=== PATIENT | male | born 1950 | race Caucasian/White ===

== ENCOUNTER 2019-05-25 15:27 | Emergency (ER) | payer MEDICARE, OTHER ==
[2019-05-25] MEDS ORDERED: NS 0.9% 1000 ML** 1,000 ML IV ONE (17:11)
--- NOTE | 2019-05-25 17:11 | ED ---
Abdominal Pain/Male - HPI Summary HPI Summary: 68 year old M presenting to [facility] accompanied by two female companions complains of RLQ pain that radiates to the back following meals and smoking for around a month. The pain subsides after episodes but comes back after eating again. The episode this morning was particularly bad hence the ED visit. Patient reports fever and dizziness. Patient denies n/v/d, constipation, diarrhea, and any urinary symptoms. PMHx of HTN and diabetes. SOcHx of cigarettes use and no alcohol or drugs. The patient rates the pain 6/10 in severity. Symptoms aggravated by eating. Symptoms alleviated by nothing. Medications reviewed. Allergies noted. - History of Current Complaint Chief Complaint: EDAbdPain Stated Complaint: FEVER/ABD PAIN PER PT Time Seen by Provider: 05/25/19 17:02 Hx Obtained From: Patient Onset/Duration: Gradual Onset, Lasting Weeks - Since a month ago, Still Present , Worse Since Timing: Intermittent - Comes after eating Severity Initially: Moderate Severity Currently: Moderate Pain Intensity: 6 Pain Scale Used: 0-10 Numeric Location: Discrete At: RLQ Radiates: No Aggravating Factor(s): Food Alleviating Factor(s): Nothing Associated Signs And Symptoms: Positive: Fever, Dizzy. Negative: Constipation, Urinary Symptoms, Nausea, Vomiting, Diarrhea - Allergies/Home Medications Allergies/Adverse Reactions: Allergies Allergy/AdvReac Type Severity Reaction Status Date / Time clopidogrel [From Plavix] Allergy Rash Verified 05/25/19 15:53 Home Medications: Home Medications Lisinopril TAB* [Prinivil TAB*] 10 mg PO QAM 07/19/13 [History Confirmed ] Dicyclomine CAP* [Bentyl CAP*] 10 mg PO TID PRN #12 cap 05/25/19 [Rx] Lovastatin (NF) [Mevacor (NF)] 40 mg PO QPM 05/25/19 [History Confirmed 05/25/19 ] Metoprolol Tartrate TAB* [Lopressor TAB*] 25 mg PO BID 05/25/19 [History Confirmed 05/25/19] SitaGLIPtin (NF) [Januvia (NF)] 100 mg PO DAILY 05/25/19 [History Confirmed ] glipiZIDE TAB.XL* [Glucotrol XL*] 5 mg PO QAM 05/25/19 [History Confirmed ] metFORMIN* [Glucophage 1000 MG TAB *] 1,000 mg PO BID 05/25/19 [History Confirmed 05/25/19] PMH/Surg Hx/FS Hx/Imm Hx Endocrine/Hematology History: Reports: Hx Diabetes - TYPE 2 Cardiovascular History: Reports: Hx Coronary Artery Disease - CHOLESTEROL CONTROL WITH MEDICATIONS, Other Cardiovascular Problems/Disorders - STENTS X 2, 2004 AND 2008 Musculoskeletal History: Reports: Other Musculoskeletal History - OCCASIONAL ACHES Sensory History: Reports: Hx Contacts or Glasses - READING GLASSES Denies: Hx Hearing Aid Opthamlomology History: Reports: Hx Contacts or Glasses - READING GLASSES - Surgical History Surgery Procedure, Year, and Place: 2004 & 2008 CARDIAC STENTS INSERTION X 2, [place]. 2003 BILATERAL CATARACT EXTRACTION WITH IOL IMPLANT, [facility]. 2014 COLONOSCOPY, [facility] Hx Anesthesia Reactions: No Infectious Disease History: No Infectious Disease History: Denies: Traveled Outside the [place] in Last 30 Days - Family History Known Family History: Positive: Diabetes, Other - Arthritis, breast CA - Social History Alcohol Use: None Substance Use Type: Reports: None Amount Used/How Often: 1 PPD Length of Time of Smoking/Using Tobacco: 40 YEARS Review of Systems Positive: Fever Gastrointestinal: Negative - Constipation Positive: Abdominal Pain - RLQ. Negative: Vomiting, Diarrhea, Nausea Genitourinary: Negative - Urinary symptoms Neurological/Mental Status: Other - Dizziness All Other Systems Reviewed And Are Negative: Yes Physical Exam - Summary Physical Exam Summary: Constitutional: Well-developed, Well-nourished, Alert. (-) Distressed Skin: Warm, Dry HENT: Normocephalic; Atraumatic Eyes: Conjunctiva normal Neck: Musculoskeletal ROM normal neck. (-) JVD, (-) Stridor, (-) Tracheal deviation Cardio: Rhythm regular, rate normal, Heart sounds normal; Intact distal pulses; Radial pulses are 2+ and symmetric. (-) Murmur Pulmonary/Chest wall: Effort normal. (-) Respiratory distress, (-) Wheezes, (-) Rales Abd: Severe tenderness in RLQ, no rebound or guarding, mild RUQ tenderness Musculoskeletal: (-) Edema Lymph: (-) Cervical adenopathy Neuro: Alert, Oriented x3 Psych: Mood and affect Normal Vital Signs On Initial Exam: Initial Vitals Temp Pulse Resp BP Pulse Ox 98.6 F 68 16 131/80 95 05/25/19 15:50 05/25/19 15:50 05/25/19 15:50 05/25/19 15:50 05/25/19 15:50 Procedures - Sedation Patient Received Moderate/Deep Sedation with Procedure: No Diagnostics - Vital Signs Vital Signs Temp Pulse Resp BP Pulse Ox 05/25/19 15:50 98.6 F 68 16 131/80 95 - Laboratory Result Diagrams: 05/25/19 17:22 05/25/19 17:22 Lab Statement: Any lab studies that have been ordered have been reviewed, and results considered in the medical decision making process. - CT A/P CT Interpretation Completed By: Radiologist Summary of CT Findings: Abnormal right kidney with wedge-shaped hypodense regions compatible with pyelonephritis. No obvious mass lesion, although follow- up is recommended. Dr. Haddad has reviewed this radiology report. Re-Evaluation - Re-Evaluation First Eval Re-Evaluation Time: 19:28 Comment: Discussed results with patient. Patient will be discharged home with dx of RLQ pain. Patient understands and agrees with this plan. Abdominal Pain Male Course/Dx - Course Course Of Treatment: Patient is here with a couple episodes of right lower quadrant pain that occur after eating. Patient is overall well-appearing but does have point tenderness in his right lower quadrant. Patient had blood work performed which was grossly unremarkable including a normal CRP. Patient a CT scan which showed stranding around the right kidney but patient had no urinary symptoms and had a negative UA. She was not treated with antibiotics. Patient was started on Bentyl and was told to follow up with his primary care doctor to have his symptoms reevaluated. - Diagnoses Provider Diagnoses: RLQ abdominal pain Discharge ED - Sign-Out/Discharge Documenting (check all that apply): Patient Departure - Discharge - Discharge Plan Condition: Stable Disposition: HOME Prescriptions: Dicyclomine CAP* [Bentyl CAP*] 10 mg PO TID PRN #12 cap PRN Reason: abdominal pain Patient Education Materials: Acute Abdominal Pain (ED) Referrals: Anthony Cueto MD [Primary Care Provider] - Additional Instructions: Please follow up with her primary care doctor to get reevaluated Please return to the emergency department history of severe pain, fever, intractable vomiting, any other concerning symptoms Please take your medication as prescribed - Billing Disposition and Condition Condition: STABLE Disposition: Home - Attestation Statements Document Initiated by Scribe: Yes Documenting Scribe: Donald Jang Provider For Whom Naima is Documenting (Include Credential): Odilon Haddad MD Scribe Attestation: I, Donald Jang, scribed for Odilon Haddad MD on 05/25/19 at 1945. Scribe Documentation Reviewed: Yes Provider Attestation: The documentation as recorded by the scribe, Donald Jang accurately reflects the service I personally performed and the decisions made by me, Odilon Haddad MD Status of Scribe Document: Viewed
[2019-05-25 17:38] LABS: ABS Eosinophils 0.2 10^3/ul (0-0.6); ABS Lymphocytes 3.3 10^3/ul (1.0-4.8); ABS Monocytes 0.7 10^3/ul (0-0.8); ABS Neutrophils 3.3 10^3/ul (1.5-7.7); Eosinophil % 2.1 %; Hematocrit 41 % (42-52); Hemoglobin 14.2 g/dL (14.0-18.0); Lymphocyte % 43.3 %; Mean Corpuscular HGB Conc 34 g/dL (31-36); Mean Corpuscular Hemoglobin 30 pg (27-31); Mean Corpuscular Volume 87 fL (80-94); Mean Platelet Volume 8.4 fL (7.4-10.4); Nucleated Red Blood Cells % 0.1; Platelet Count 211 10^3/uL (150-450); Red Blood Count 4.72 10^6 /uL (4.18-5.48); Red Cell Distribution Width 14 % (10-15); White Blood Count 7.5 10^3/uL (3.5-10.8)
[2019-05-25 17:54] LABS: Albumin 4.1 g/dL (3.2-5.2); Albumin/Globulin Ratio 1.2 (1-3); BUN/Creatinine Ratio 14.9 (8-20); C Reactive Protein 6.76 mg/L (<8.01); Calcium 9.4 mg/dL (8.6-10.3); EGFR Non-African American 79.3 (>60); Globulin 3.3 g/dL (2-4); Potassium 4.3 mmol/L (3.5-5.0); Total Bilirubin 0.5 mg/dL (0.2-1.0); Total Protein 7.4 g/dL (6.4-8.9)
[2019-05-25 18:22] LABS: Urine Appearance Clear; Urine Bilirubin Negative (Negative); Urine Blood Negative (Negative); Urine Color Yellow; Urine Glucose 2+(150 mg/dL) (Negative); Urine Ketones Negative (Negative); Urine Nitrite Negative (Negative); Urine Protein 2+(100 mg/dL) (Negative); Urine Specific Gravity 1.017 (1.010-1.030); Urine Urobilinogen Negative (Negative)
[2019-05-25] MEDS ORDERED: Iodixanol* (CONTRAST) 320 MG/ML 100 ML SDV IV ONE (18:39)
[2019-05-25 18:41] LABS: Urine Bacteria Absent (Absent); Urine Red Blood Cell Absent (Absent); Urine White Blood Cell Absent (Absent)
[2019-05-25 19:52] VITALS: BP 141/93
== END 2019-05-25 19:51 | disposition home or self-care (01) ==
LOC: ED 15:27
DX: R10.31 Right lower quadrant pain (principal); R50.9 Fever, unspecified; R42 Dizziness and giddiness; E11.9 Type 2 diabetes mellitus without complications; Z79.84 Long term (current) use of oral hypoglycemic drugs; E78.00 Pure hypercholesterolemia, unspecified; Z95.5 Presence of coronary angioplasty implant and graft; Z88.8 Allergy status to other drugs, medicaments and biological substances
CPT/HCPCS: 36415; 74177; 80053; 81003; 81015; 85025; 86140; 96360; 99283; Q9967

== ENCOUNTER 2019-05-31 18:33 | Emergency (ER) | payer MEDICARE ==
[2019-05-31] MEDS ORDERED: Morphine 4 MG/ML VIAL (1 ml) 4 MG/ML VIAL IV ONE (18:49)
[2019-05-31] MEDS ORDERED: NS 0.9% 1000 ML** 1,000 ML IV ONE ×2 (18:49→21:25)
[2019-05-31 19:09] LABS: ABS Basophils 0.1 10^3/ul (0-0.2); ABS Eosinophils 0.1 10^3/ul (0-0.6); ABS Lymphocytes 2.8 10^3/ul (1.0-4.8); ABS Monocytes 0.9 10^3/ul (0-0.8); ABS Neutrophils 7.2 10^3/ul (1.5-7.7); Eosinophil % 0.5 %; Hematocrit 43 % (42-52); Lymphocyte % 25.5 %; Mean Corpuscular HGB Conc 35 g/dL (31-36); Mean Corpuscular Hemoglobin 30 pg (27-31); Mean Corpuscular Volume 87 fL (80-94); Mean Platelet Volume 8.2 fL (7.4-10.4); Nucleated Red Blood Cells % 0.1; Platelet Count 225 10^3/uL (150-450); Red Blood Count 4.97 10^6 /uL (4.18-5.48); Red Cell Distribution Width 14 % (10-15); White Blood Count 11.1 10^3/uL (3.5-10.8)
--- NOTE | 2019-05-31 19:14 | ED ---
GI/ HPI - HPI Summary HPI Summary: 68 year old male presents with increasing right-sided abdominal pain that radiates to back for the past day. He had this pain intermittently for the past month and has gotten worse in the past day. He was seen here couple days ago and then CT showed some straining around the kidney. He denies any diarrhea or constipation. had normal BM today which helped with pain. No chest pain or shortness of breath. No nausea or vomiting. No fevers or chills. Does have a history of 2 previous stents and htn. No previous abd surgeries. Has never had this pain before. is concerned has diverticulitis. - History of Current Complaint Chief Complaint: EDAbdPain Time Seen by Provider: 05/31/19 18:41 Stated Complaint: SIDE PAIN PER PT Pain Intensity: 10 - Allergy/Home Medications Allergies/Adverse Reactions: Allergies Allergy/AdvReac Type Severity Reaction Status Date / Time clopidogrel [From Plavix] Allergy Rash Verified 05/25/19 15:53 Home Medications: Home Medications Lisinopril TAB* [Prinivil TAB*] 10 mg PO QAM 07/19/13 [History Confirmed ] Lovastatin (NF) [Mevacor (NF)] 40 mg PO QPM 05/25/19 [History Confirmed 05/31/19 ] Metoprolol Tartrate TAB* [Lopressor TAB*] 25 mg PO BID 05/25/19 [History Confirmed 05/31/19] SitaGLIPtin (NF) [Januvia (NF)] 100 mg PO DAILY 05/25/19 [History Confirmed 06/16] glipiZIDE TAB.XL* [Glucotrol XL*] 5 mg PO QAM 05/25/19 [History Confirmed ] metFORMIN* [Glucophage 1000 MG TAB *] 1,000 mg PO BID 05/25/19 [History Confirmed 05/31/19] oxyCODONE/Acetamin 5/325 MG* [Percocet 5/325 TAB*] 1 tab PO Q6H PRN #16 tab MDD 4 05/31/19 [Rx] PMH/Surg Hx/FS Hx/Imm Hx Endocrine/Hematology History: Reports: Hx Diabetes - TYPE 2 Cardiovascular History: Reports: Hx Coronary Artery Disease - CHOLESTEROL CONTROL WITH MEDICATIONS, Other Cardiovascular Problems/Disorders - STENTS X 2, 2004 AND 2008 Musculoskeletal History: Reports: Other Musculoskeletal History - OCCASIONAL ACHES Sensory History: Reports: Hx Contacts or Glasses - READING GLASSES Denies: Hx Hearing Aid Opthamlomology History: Reports: Hx Contacts or Glasses - READING GLASSES - Surgical History Surgery Procedure, Year, and Place: 2004 & 2008 CARDIAC STENTS INSERTION X 2, [place]. 2004 BILATERAL CATARACT EXTRACTION WITH IOL IMPLANT, [facility]. 2014 COLONOSCOPY, [facility] Hx Anesthesia Reactions: No Infectious Disease History: No Infectious Disease History: Denies: Traveled Outside the [place] in Last 30 Days - Family History Known Family History: Positive: Diabetes, Other - Arthritis, breast CA - Social History Alcohol Use: None Substance Use Type: Reports: None Smoking Status (MU): Heavy Every Day Tobacco Smoker Amount Used/How Often: 1 PPD Length of Time of Smoking/Using Tobacco: 40 YEARS Review of Systems Negative: Fever Negative: Chest Pain Negative: Shortness Of Breath Positive: Abdominal Pain, Nausea. Negative: Vomiting, Diarrhea All Other Systems Reviewed And Are Negative: Yes Physical Exam Triage Information Reviewed: Yes Vital Signs On Initial Exam: Initial Vitals Temp Pulse Resp BP Pulse Ox 97.0 F 121 18 118/88 97 05/31/19 18:34 05/31/19 18:34 05/31/19 18:34 05/31/19 18:34 05/31/19 18:34 Vital Signs Reviewed: Yes Appearance: Positive: Well-Appearing Skin: Positive: Warm, Dry Head/Face: Positive: Normal Head/Face Inspection Eyes: Positive: Normal, Conjunctiva Clear ENT: Positive: Pharynx normal Respiratory/Lung Sounds: Positive: Clear to Auscultation, Breath Sounds Present Cardiovascular: Positive: Normal, RRR Abdomen Description: Positive: Soft, Other: - tenderness in RLQ Bowel Sounds: Positive: Present Musculoskeletal: Positive: Normal Neurological: Positive: Normal Psychiatric: Positive: Normal Procedures - Sedation Patient Received Moderate/Deep Sedation with Procedure: No Diagnostics - Vital Signs Vital Signs Temp Pulse Resp BP Pulse Ox 05/31/19 19:03 18 05/31/19 18:34 97.0 F 121 18 118/88 97 - Laboratory Lab Results: Lab Results 05/31/19 Range/Units 19:00 WBC 11.1 H (3.5-10.8) 10^3/uL RBC 4.97 (4.18-5.48) 10^6 /uL Hgb 15.0 (14.0-18.0) g/dL Hct 43 (42-52) % MCV 87 (80-94) fL MCH 30 (27-31) pg MCHC 35 (31-36) g/dL RDW 14 (10-15) % Plt Count 225 (150-450) 10^3/uL MPV 8.2 (7.4-10.4) fL Neut % (Auto) 65.2 % Lymph % (Auto) 25.5 % Chambers % (Auto) 8.3 % Eos % (Auto) 0.5 % Baso % (Auto) 0.5 % Absolute Neuts (auto) 7.2 (1.5-7.7) 10^3/ul Absolute Lymphs (auto) 2.8 (1.0-4.8) 10^3/ul Absolute Monos (auto) 0.9 H (0-0.8) 10^3/ul Absolute Eos (auto) 0.1 (0-0.6) 10^3/ul Absolute Basos (auto) 0.1 (0-0.2) 10^3/ul Absolute Nucleated RBC 0.0 10^3/ul Nucleated RBC % 0.1 Result Diagrams: 05/31/19 19:00 05/31/19 19:00 Lab Statement: Any lab studies that have been ordered have been reviewed, and results considered in the medical decision making process. - CT abd CT Interpretation Completed By: Radiologist Summary of CT Findings: IMPRESSION: 1. Intervally enlarged right renal infarct. 2. Fusiform infrarenal aorta aneurysm. No rupture. - EKG No standard instances Cardiac Rate: Tachycardia EKG Rhythm: Sinus Tachycardia Summary of EKG Findings: sinus tachycardia, RBBB GIGU Course/Dx - Course Course Of Treatment: 68 year old male presents with increasing right-sided abdominal pain that radiates to back for the past day. He had this pain intermittently for the past month and has gotten worse in the past day. He was seen here couple days ago and then CT showed some straining around the kidney. He denies any diarrhea or constipation. had normal BM today which helped with pain. No chest pain or shortness of breath. No fevers or chills. Does have a history of 2 previous stents and htn. No previous abd surgeries. Has never had this pain before. On exam tenderness in the right lower quadrant. Also CVA tenderness. wbc is 11.1. CRP is normal. wbc normal. Renal functions are normal. CT shows right renal infarct. patient wants to go home. Discussed case with dr Aldrich and states that can follow-up outpatient as will likely need an echo, rheumatologic workup. discussed should follow-up with construction cost estimator. Gave short course of pain medication. Patient understands and agrees with the plan. - Diagnoses Differential Diagnoses - Male: Appendicitis, Diverticulosis, Pyelonephritis Provider Diagnoses: Renal infarct Discharge ED - Sign-Out/Discharge Documenting (check all that apply): Patient Departure - Discharge Plan Condition: Good Disposition: HOME Prescriptions: oxyCODONE/Acetamin 5/325 MG* [Percocet 5/325 TAB*] 1 tab PO Q6H PRN #16 tab MDD 4 PRN Reason: Pain - Severe Referrals: Darleen Aldrich MD [Medical Doctor] - Anthony Cueto MD [Primary Care Provider] - Additional Instructions: follow up with nephrology Follow up with cardiology Take percocet every 6 hours for pain Return to ED if develop fever or any new or worsening symptoms - Billing Disposition and Condition Condition: GOOD Disposition: Home
[2019-05-31 19:51] LABS: Albumin/Globulin Ratio 1.1 (1-3); BUN/Creatinine Ratio 21.1 (8-20); C Reactive Protein 5.1 mg/L (<8.01); Calcium 9.4 mg/dL (8.6-10.3); EGFR African American 80.9 (>60); EGFR Non-African American 66.9 (>60); Globulin 3.5 g/dL (2-4); Potassium 4.7 mmol/L (3.5-5.0); Total Bilirubin 0.4 mg/dL (0.2-1.0); Total Protein 7.5 g/dL (6.4-8.9)
[2019-05-31] MEDS ORDERED: Iodixanol* (CONTRAST) 320 MG/ML 100 ML SDV IV ONE (20:16)
[2019-05-31 22:43] LABS: Urine Appearance Clear; Urine Bilirubin Negative (Negative); Urine Blood Negative (Negative); Urine Color Straw; Urine Glucose Negative (Negative); Urine Ketones Negative (Negative); Urine Nitrite Negative (Negative); Urine Protein Negative (Negative); Urine Specific Gravity 1.036 (1.010-1.030); Urine Urobilinogen Negative (Negative)
[2019-05-31 22:59] VITALS: BP 125/89
== END 2019-05-31 22:58 | disposition home or self-care (01) ==
LOC: ED 18:33
DX: N28.0 Ischemia and infarction of kidney (principal); I71.4 Abdominal aortic aneurysm, without rupture; R00.0 Tachycardia, unspecified; I45.2 Bifascicular block; R11.0 Nausea; E11.9 Type 2 diabetes mellitus without complications; Z79.84 Long term (current) use of oral hypoglycemic drugs; E78.00 Pure hypercholesterolemia, unspecified; Z95.5 Presence of coronary angioplasty implant and graft; Z79.899 Other long term (current) drug therapy; Z88.8 Allergy status to other drugs, medicaments and biological substances; F17.200 Nicotine dependence, unspecified, uncomplicated
CPT/HCPCS: 36415; 74177; 80053; 81003; 83605; 83690; 85025; 86140; 93005; 96361; 96374; 99283; J2270; Q9967

== ENCOUNTER 2020-02-04 21:32 | Inpatient (IN) ==
[2020-02-04] MEDS ORDERED: Amiodarone 360 MG IVPREMIX 360 MG/200 ML BAG IV ONE (21:35)
[2020-02-04 22:09] LABS: ABS Basophils 0.1 10^3/ul (0-0.2); ABS Eosinophils 0.1 10^3/ul (0-0.6); ABS Lymphocytes 3.3 10^3/ul (1.0-4.8); ABS Monocytes 1.1 10^3/ul (0-0.8); ABS Neutrophils 4.7 10^3/ul (1.5-7.7); Eosinophil % 0.7 %; Hematocrit 38 % (42-52); Hemoglobin 12.9 g/dL (14.0-18.0); Lymphocyte % 35.5 %; Mean Corpuscular HGB Conc 34 g/dL (31-36); Mean Corpuscular Hemoglobin 30 pg (27-31); Mean Corpuscular Volume 87 fL (80-94); Mean Platelet Volume 8.2 fL (7.4-10.4); Platelet Count 249 10^3/uL (150-450); Red Blood Count 4.32 10^6 /uL (4.18-5.48); Red Cell Distribution Width 14 % (10-15); White Blood Count 9.2 10^3/uL (3.5-10.8)
[2020-02-04 22:26] LABS: ALT 9 U/L (7-52); AST 9 U/L (13-39); Albumin 3.8 g/dL (3.2-5.2); Alkaline Phosphatase 81 U/L (34-104); Anion Gap 10 mmol/L (2-11); BUN/Creatinine Ratio 14.9 (8-20); Blood Urea Nitrogen 15 mg/dL (6-24); CO2 Carbon Dioxide 24 mmol/L (22-32); Calcium 9.3 mg/dL (8.6-10.3); Chloride 99 mmol/L (101-111); EGFR African American 88.1 (>60); EGFR Non-African American 72.8 (>60); Globulin 3.9 g/dL (2-4); Glucose 218 mg/dL (70-100); INR 1.34 (0.82-1.09); Potassium 3.6 mmol/L (3.5-5.0); Sodium 133 mmol/L (135-145); Total Protein 7.7 g/dL (6.4-8.9)
[2020-02-04 22:37] LABS: Urine Appearance Clear; Urine Bilirubin Negative (Negative); Urine Blood 1+ (Negative); Urine Color Yellow; Urine Glucose 3+(>=500 mg/dL) (Negative); Urine Ketones Negative (Negative); Urine Nitrite Negative (Negative); Urine Protein 3+(>=500 mg/dL) (Negative); Urine Specific Gravity 1.014 (1.010-1.030); Urine Urobilinogen Negative (Negative)
[2020-02-04 22:39] LABS: Urine Bacteria Absent (Absent); Urine Red Blood Cell Trace(0-2/hpf) (Absent); Urine White Blood Cell Trace(0-5/hpf) (Absent)
[2020-02-04 22:42] LABS: Troponin I 0.03 ng/mL (<0.03)
[2020-02-05 01:48] LABS: Troponin I 0.03 ng/mL (<0.03)
[2020-02-05] MEDS ORDERED: Dextrose 50% Syringe 50 ml 25 GM/50 ML SYRINGE IV PUSH PRN (02:03)
[2020-02-05] MEDS ORDERED: Bumetanide IV 0.25 MG/ML 4 ml VIAL (1 mg) SLOW PUSH ONE (02:24)
[2020-02-05] MEDS ORDERED: Bumetanide IV 0.25 MG/ML 4 ml VIAL (1 mg) SLOW PUSH SCH (03:00)
[2020-02-05 05:30] LABS: Troponin I 0.03 ng/mL (<0.03)
[2020-02-05] MEDS ORDERED: Amiodarone 360 MG IVPREMIX 360 MG/200 ML BAG IV ONE (06:03)
[2020-02-05] MEDS ORDERED: Nicotine PATCH 14 MG/24 HR PATCH TRANSDERM SCH (09:00)
[2020-02-05 09:47] LABS: T4, Total 11.47 mcg/dL (6.09-12.23)
[2020-02-05 09:50] LABS: TSH Ultra Thyroid Stim Horm 1.94 mcIU/mL (0.34-5.60)
[2020-02-05 09:57] LABS: Total T3 63 ng/dL (87-178)
[2020-02-05 12:03] LABS: HDL Cholesterol 31.5 mg/dL
[2020-02-06 05:20] LABS: ABS Basophils 0.1 10^3/ul (0-0.2); ABS Eosinophils 0.2 10^3/ul (0-0.6); ABS Lymphocytes 3.1 10^3/ul (1.0-4.8); ABS Monocytes 0.9 10^3/ul (0-0.8); ABS Neutrophils 3.7 10^3/ul (1.5-7.7); Eosinophil % 2.2 %; Hematocrit 38 % (42-52); Hemoglobin 12.7 g/dL (14.0-18.0); Lymphocyte % 38.8 %; Mean Corpuscular HGB Conc 34 g/dL (31-36); Mean Corpuscular Hemoglobin 30 pg (27-31); Mean Corpuscular Volume 88 fL (80-94); Mean Platelet Volume 8.2 fL (7.4-10.4); Platelet Count 241 10^3/uL (150-450); Red Blood Count 4.31 10^6 /uL (4.18-5.48); Red Cell Distribution Width 14 % (10-15); White Blood Count 7.9 10^3/uL (3.5-10.8)
[2020-02-06 05:29] LABS: Activated Partial Thrombo Time 22.7 seconds (26.0-38.0); INR 1.11 (0.82-1.09)
[2020-02-06 05:37] LABS: BUN/Creatinine Ratio 21.2 (8-20); Calcium 9.2 mg/dL (8.6-10.3); EGFR African American 85.2 (>60); EGFR Non-African American 70.4 (>60); Potassium 3.7 mmol/L (3.5-5.0)
[2020-02-06] MEDS ORDERED: Potassium Chlor 20 meq TAB.ER PO ONE (07:10)
[2020-02-06] MEDS: Nicotine PATCH 21 MG/24 HR PATCH TRANSDERM SCH (07:25)
[2020-02-06] MEDS ORDERED: fentaNYL 100 mcg/2 ml 50 MCG/ML VIAL ONE (08:34)
[2020-02-06] MEDS ORDERED: Midazolam 5 mg/5 ml VIAL 1 mg/ml 5 ml VIAL (5 mg) ONE (08:34)
[2020-02-06] MEDS ORDERED: Naloxone 0.4 mg VIAL 0.4 mg/ml 1 ml VIAL ONE (08:35)
[2020-02-06] MEDS ORDERED: Flumazenil 0.5 mg/5 ml 0.1 MG/ML 5 ml VIAL ONE (08:35)
[2020-02-06] MEDS ORDERED: Amiodarone 150 mg IVPREMIX 150 MG/100 ML BAG IV ONE (09:50)
[2020-02-06] MEDS ORDERED: Amiodarone 360 MG IVPREMIX 360 MG/200 ML BAG IV ONE (10:00)
[2020-02-06] MEDS: Amiodarone 360 MG IVPREMIX 360 MG/200 ML BAG IV SCH (17:23)
[2020-02-07] MEDS ORDERED: Furosemide 40 mg/4 ml IV VIAL IV SLOW PU ONE (01:53)
[2020-02-07 03:15] LABS: Potassium 3.9 mmol/L (3.5-5.0)
[2020-02-07 03:16] LABS: BUN/Creatinine Ratio 23.3 (8-20); Calcium 9.1 mg/dL (8.6-10.3); EGFR African American 86.1 (>60); EGFR Non-African American 71.2 (>60)
[2020-02-07] MEDS ORDERED: Potassium Chlor 20 meq TAB.ER PO ONE (03:32)
[2020-02-07] MEDS: Amiodarone 360 MG IVPREMIX 360 MG/200 ML BAG IV SCH (04:21)
[2020-02-07 06:37] LABS: ABS Basophils 0.1 10^3/ul (0-0.2); ABS Eosinophils 0.2 10^3/ul (0-0.6); ABS Lymphocytes 3.3 10^3/ul (1.0-4.8); ABS Monocytes 1.1 10^3/ul (0-0.8); ABS Neutrophils 4.9 10^3/ul (1.5-7.7); Eosinophil % 1.9 %; Hematocrit 38 % (42-52); Hemoglobin 12.9 g/dL (14.0-18.0); Mean Corpuscular HGB Conc 34 g/dL (31-36); Mean Corpuscular Hemoglobin 30 pg (27-31); Mean Corpuscular Volume 88 fL (80-94); Mean Platelet Volume 8.3 fL (7.4-10.4); Platelet Count 266 10^3/uL (150-450); Red Blood Count 4.33 10^6 /uL (4.18-5.48); Red Cell Distribution Width 14 % (10-15); White Blood Count 9.5 10^3/uL (3.5-10.8)
[2020-02-07 06:56] LABS: Troponin I 0.03 ng/mL (<0.03)
[2020-02-07] MEDS: Nicotine PATCH 21 MG/24 HR PATCH TRANSDERM SCH (07:32)
[2020-02-07] MEDS: Amiodarone 400 mg TAB PO SCH ×2 (11:01→20:45)
[2020-02-07] MEDS: Albuterol/Ipratropium NEB.SOL (2.5/0.5 MG) 3 ML NEB.SOLN INH SCH ×2 (13:59→16:05)
[2020-02-07] MEDS ORDERED: Albuterol/Ipratropium NEB.SOL (2.5/0.5 MG) 3 ML NEB.SOLN INH PRN (16:17)
[2020-02-07] MEDS ORDERED: Amiodarone 400 mg TAB PO SCH (21:00)
[2020-02-08 07:09] LABS: ABS Eosinophils 0.1 10^3/ul (0-0.6); ABS Lymphocytes 2.5 10^3/ul (1.0-4.8); ABS Monocytes 0.9 10^3/ul (0-0.8); ABS Neutrophils 3.9 10^3/ul (1.5-7.7); Eosinophil % 1.4 %; Hematocrit 37 % (42-52); Hemoglobin 12.6 g/dL (14.0-18.0); Lymphocyte % 33.4 %; Mean Corpuscular HGB Conc 34 g/dL (31-36); Mean Corpuscular Hemoglobin 30 pg (27-31); Mean Corpuscular Volume 87 fL (80-94); Platelet Count 259 10^3/uL (150-450); Red Blood Count 4.26 10^6 /uL (4.18-5.48); Red Cell Distribution Width 14 % (10-15); White Blood Count 7.4 10^3/uL (3.5-10.8)
[2020-02-08 07:34] LABS: BUN/Creatinine Ratio 17.2 (8-20); Calcium 9.2 mg/dL (8.6-10.3); EGFR African American 90.2 (>60); EGFR Non-African American 74.5 (>60); Magnesium 1.8 mg/dL (1.9-2.7); Potassium 4.1 mmol/L (3.5-5.0)
[2020-02-08] MEDS ORDERED: Magnesium Sulfate 2 gm BAG 2 GM/50 ML BAG IVPB ONE (07:42)
[2020-02-08] MEDS: Nicotine PATCH 21 MG/24 HR PATCH TRANSDERM SCH (07:54)
[2020-02-08] MEDS: Amiodarone 400 mg TAB PO SCH ×2 (09:53→19:50)
[2020-02-08] MEDS ORDERED: Flumazenil 0.5 mg/5 ml 0.1 MG/ML 5 ml VIAL ONE (14:44)
[2020-02-08] MEDS ORDERED: fentaNYL 100 mcg/2 ml 50 MCG/ML VIAL ONE (14:44)
[2020-02-08] MEDS ORDERED: Midazolam 5 mg/5 ml VIAL 1 mg/ml 5 ml VIAL (5 mg) ONE (14:44)
[2020-02-08] MEDS ORDERED: Naloxone 0.4 mg VIAL 0.4 mg/ml 1 ml VIAL ONE (14:44)
[2020-02-08] MEDS ORDERED: Iodixanol (CONTRAST) 320 MG/ML 100 ML SDV IV ONE (16:34)
[2020-02-09 06:25] LABS: ABS Eosinophils 0.1 10^3/ul (0-0.6); ABS Lymphocytes 2.5 10^3/ul (1.0-4.8); ABS Monocytes 0.8 10^3/ul (0-0.8); Eosinophil % 2.2 %; Hematocrit 37 % (42-52); Hemoglobin 12.4 g/dL (14.0-18.0); Lymphocyte % 38.3 %; Mean Corpuscular HGB Conc 34 g/dL (31-36); Mean Corpuscular Hemoglobin 30 pg (27-31); Mean Corpuscular Volume 88 fL (80-94); Mean Platelet Volume 7.9 fL (7.4-10.4); Platelet Count 264 10^3/uL (150-450); Red Blood Count 4.21 10^6 /uL (4.18-5.48); Red Cell Distribution Width 14 % (10-15); White Blood Count 6.4 10^3/uL (3.5-10.8)
[2020-02-09 06:47] LABS: Calcium 9.3 mg/dL (8.6-10.3); EGFR African American 89.1 (>60); EGFR Non-African American 73.7 (>60); Potassium 4.1 mmol/L (3.5-5.0)
[2020-02-09] MEDS: Amiodarone 400 mg TAB PO SCH (07:55)
[2020-02-09] MEDS: Nicotine PATCH 21 MG/24 HR PATCH TRANSDERM SCH (07:56)
[2020-02-09 12:05] VITALS: BP 110/83
== END 2020-02-09 15:10 | disposition home health service (06) | DRG 308 ==
LOC: ED 21:32 → ICU 23:10 → MEDTELE 02-07 14:46
PROVIDERS: ADMIT Internal Medicine; ATTEND Internal Medicine
PROC: CARDVER (ICD-10-PCS; 2020-02-08 14:50)